=== PATIENT | female | born 1950 | race Caucasian/White ===

== ENCOUNTER → 2020-08-15 13:03 | Outpatient (CLI) | payer MEDICARE, SELFPAY ==
[2020-08-15] MEDS: COVID-19 VACC #1, MRNA(MOD) 100 MCG/0.5 ML VIAL IM (13:16)
== END ==
PROVIDERS: Visit Provider Internal Medicine
DX: Z23 Encounter for immunization (principal)
CPT/HCPCS: 0011A; 91301

== ENCOUNTER → 2020-09-10 09:58 | Outpatient (CLI) | payer OTHER, SELFPAY ==
--- NOTE | 2020-09-10 | DI.RAD.S_ITS ---
PROCEDURE: XR CERVICAL SPINE 4V OR 5V INDICATIONS: Cervical radiculopathy TECHNIQUE: 5 views of the cervical spine acquired. COMPARISON: None. FINDINGS: No fracture. Multilevel degenerative endplate sclerosis and spurring. Diffuse facet arthropathy. Severe narrowing of the C4-C7 disc spaces. Grade 1 anterolisthesis of C3 on C4. Mild bony foraminal narrowing at C5-C6 and C6-C7 on the right. Moderate to severe left bony foraminal stenosis at C5-C6 Partially visualized lateral curvature of the cervical spine Soft tissues: No prevertebral soft tissue swelling. IMPRESSION: Cervical spondylosis and facet arthropathy as above. Grade 1 anterolisthesis of C3 on C4 Dictated by: Blayne Mckeon M.D. on 09/10/2020 at 12:03 Approved by: Blayne Mckeon M.D. on 09/10/2020 at 12:07
[2020-09-10 10:50] LABS: Add Manual Diff / Slide Review NO; Basophils Absolute Auto 0 /uL (0-100); Basophils Percent Auto 0.5 % (0-2); Eosinophils Absolute Auto 200 /uL (0-450); Eosinophils Percent Auto 3.1 % (2-4); Hematocrit 37.8 % (36-46); Hemoglobin 13.3 g/dL (12.0-16.0); Lymphocytes Absolute Auto 2000 /uL (1100-4500); Lymphocytes Percent Auto 35.5 % (25-40); Mean Corpuscular HGB Conc 35.2 % (30-36); Mean Corpuscular Hemoglobin 33.7 PG (26-34); Mean Corpuscular Volume 95.8 fL (80-100); Monocytes Absolute Auto 400 /uL (0-900); Monocytes Percent Auto 6.9 % (3-14); Neutrophils Absolute Auto 3000 /uL (1500-7000); Platelet Count 353 X10^3/uL (150-400); Red Blood Cell Count 3.94 X10^6/uL (4.0-5.2); Red Cell Distribution Width 12.6 % (11.6-14.8); White Blood Cell Count 5.6 X10^3/uL (4.5-11.0)
[2020-09-10 11:04] LABS: Alanine Aminotransferase 34 IU/L (<35); Albumin 4.6 g/dL (3.5-5.0); Albumin Globulin Ratio 1.5 (1.0-2.8); Alkaline Phosphatase 77 U/L (38-126); Aspartate Aminotransferase 34 IU/L (14-36); Bilirubin Total 0.6 mg/dL (0.2-1.3); Blood Urea Nitrogen 15 mg/dL (7-17); Calcium 10.1 mg/dL (8.4-10.2); Carbon Dioxide 27 mmol/L (22-32); Chloride 97 mmol/L (98-107); Cholesterol 199 mg/dL (140-199); Estimated Glomerular Filt Rate > 60.0 mL/min (>60); Globulin 3.1 g/dL (1.7-4.1); Glucose 97 mg/dL (80-110); HDL Cholesterol 61 mg/dL (40-60); HEMOLYSIS < 15 (0-50); LDL Cholesterol Calculated 96 mg/dL (<100); Potassium 3.8 mmol/L (3.4-5.1); Sodium 132 mmol/L (137-145); Total Protein 7.7 g/dL (6.3-8.2); Triglycerides 208 mg/dL (35-150)
== END ==
PROVIDERS: Referring Provider Physician Assistant; Visit Provider Physician Assistant
DX: M54.12 Radiculopathy, cervical region (principal); I10 Essential (primary) hypertension; E78.2 Mixed hyperlipidemia
CPT/HCPCS: 36415; 72050; 80053; 80061; 85025

== ENCOUNTER → 2020-09-10 15:32 | Outpatient (CLI) | payer MEDICARE, SELFPAY ==
[2020-09-10] MEDS: COVID-19 VACC #2, MRNA(MOD) 100 MCG/0.5 ML VIAL IM (15:44)
== END ==
PROVIDERS: Visit Provider Internal Medicine
DX: Z23 Encounter for immunization (principal)
CPT/HCPCS: 0012A; 91301

== ENCOUNTER 2020-10-20 12:45 | Outpatient (RCR) | payer OTHER, SELFPAY ==
--- NOTE | 2020-09-29 15:00 | PT.OPPOC ---
Physical, Occupational & Speech Therapy At [facility] Current Diagnoses Radiculopathy, cervical region (09/29/20) Visit Care Team Role Provider Type Adelaide Corley PA-C Attending Provider Non-Staff Family Provider Primary Care Provider Referring Provider Specialty: Internal Medicine Address: [address] [place] [address], [employer] Email: [email or web address] Plan Of Care PT-OP-T Assessment and Plan Start: 09/29/20 07:26 Freq: Status: Active Protocol: Document 09/29/20 12:45 AMB (Rec: 09/30/20 08:02 AMB [email or web address]) Physical Therapy Assessment Rehab Potential Rehabilitation Potential Good Evaluation Complexity Number of Personal Factors/Comorbidities 1-2 Number of Body Systems Impaired 3 Clinical Presentation at Evaluation Evolving Impairments Impairments Pain,Posture,ROM Goals Two Impairment Pain Short Term Goal (STG) Simi will sit for an hour to read/watch TV with good posture and no tingling in her arm. STG Duration 4 weeks Advanced Manufacturing Engineer Goal (LTG) Simi will work at the computer for an hour without neck pain and with good ergonomic set up. LTG Duration 8 weeks One Impairment ROM Short Term Goal (STG) Simi will improve her cervical flexion to 55 degrees without pain. STG Duration 4 weeks Assessment Summary Assessment Simi attends physical therapy with right sided muscular pain on top of cervical stenosis, worst on the left. She is experiencing some tingling, but has maintained her strength well and denies numbness. She will benefit from physical therapy for manual therapy and modalities to decrease her muscle spasm and then improve her posture/ body mechanics to avoid increased tension on her right sided neck musculature. Physical Therapy Plan Frequency and Duration Frequency of Treatment 2x/Week Duration of Treatment 8 weeks Plan of Care Start Date 09/29/20 Plan of Care End Date 11/24/20 Therapeutic Interventions Therapeutic Interventions Home Exercise Program,Joint Mobilizations,Manual Therapy, Neuromuscular Re-education, Self-Care/Home Management,Soft Tissue Mobilization, Therapeutic Activities, Therapeutic Exercises Modalities Cold Pack/Ice Massage,Electric Stimulation,Hot Packs, Traction- Mechanical, Ultrasound Next Visit Focus/Plan Next Note Type Treatment Note Next Visit Plan Reassess HEP: upper trap stretch and pec stretch. Manual therapy, can try modalities as necessary, progress postural training Plan of Care Dates Plan of Care Start Date 09/29/20 Plan of Care End Date 11/24/20 Electronically Signed by: Teri Wilson, PT 09/30/20 0804 Please Sign and Return: I have reviewed this Plan of Care and certify that the skilled therapy services above are required to meet the patient?s needs. Physician Signature Date Printed Name and Credentials Clinical Instructor Signature Printed Name and Credentials
--- NOTE | 2020-09-29 15:00 | PT.OIE ---
Current Diagnoses Radiculopathy, cervical region (09/29/20) Visit Care Team Role Provider Type Adelaide Corley PA-C Attending Provider Non-Staff Family Provider Primary Care Provider Referring Provider Specialty: Internal Medicine Address: [address] [place] [address], [id number] Email: [email or web address] Initial Evaluation PT-OP-A Visit Information Start: 09/29/20 07:26 Freq: Status: Active Protocol: Document 09/29/20 12:45 AMB (Rec: 09/30/20 08:02 AMB [email or web address]) Out-Patient Physical Therapy Visit Information Visit Information Visit Type Initial Evaluation Visit Start Time 12:45 Visit Stop Time 13:30 Total Visit Minutes 45 Visit Number 1 PT-OP-B Current Condition Start: 09/29/20 07:26 Freq: Status: Active Protocol: Document 09/29/20 12:45 AMB (Rec: 09/29/20 12:55 AMB [id number]) Current Condition History of Current Condition Onset Date August 2019 Current Complaints R neck/scapular pain History of Current Condition Woke up one night with neck pain which has recently been improving. Tingling with sitting in chair to mid arm started 6 weeks ago, denies dropping things/numbness. Hasn't been moving around as much due to covid. Generally sitting and looking down at phone/ book, increases pain/ stiffness/tingling. Prior Treatments and Tests X-ray: stensosis worst at L C56. Treatment Goals Patient/Caregiver Goals reduce pain/tingling Prior Functional Status Baseline Function- ADL's Independent Baseline Function- Mobility Independent Personal Factors Other Personal Factors That May Effect Hx lumbar laminectomy Therapy/Recovery PT-OP-C Subjective Start: 09/29/20 07:26 Freq: Status: Active Protocol: Document 09/29/20 12:45 AMB (Rec: 09/30/20 08:02 AMB [email or web address]) Patient Questionnaires Neck Disability Index NDI Score 14 Neck Disability Index Impairment 20 to 39% Impaired (Score 10- 19) Quick Dash- Upper Extremity Quick Dash UE Score 27 Quick Dash UE Impairment 20 to 39% Impaired (Score 20- 39) OP-PT Pain Assessment Comments Pain Comments 3-6/10 R cervical scapular region most at upper trap/ levator scap PT-OP-F Manual Assessment Start: 09/29/20 07:26 Freq: Status: Active Protocol: Document 09/29/20 12:45 AMB (Rec: 09/30/20 08:02 AMB [email or web address]) Manual Assessments Soft Tissue Assessment Soft Tissue Mobility Assessment Tenderness and TrPs throughout upper trap/scapular stabilizers worse R>L Joint Mobility Assessment Joint Mobility Assessment Mid stiffness with UPAs throughout cervical spine worst at lower cervical levels PT-OP-J Posture/Palpation/Skin Start: 09/29/20 07:26 Freq: Status: Active Protocol: Document 09/29/20 12:45 AMB (Rec: 09/30/20 08:02 AMB [email or web address]) Posture Evaluation Comments Posture Comments Moderate forward head posture with mild scapular border winging bilaterally PT-OP-K Range of Motion Start: 09/29/20 07:26 Freq: Status: Active Protocol: Document 09/29/20 12:45 AMB (Rec: 09/30/20 08:02 AMB [email or web address]) Cervical Spine Range of Motion Cervical Spine Active Degrees Testing Position Sitting Flexion 40 Extension 37 Rotation Left 60 Rotation Right 60 Lateral Flexion Left 25 Lateral Flexion Right 20 Comments pain with flexion in neck, no radiating sx PT-OP-M Strength Start: 09/29/20 07:26 Freq: Status: Active Protocol: Document 09/29/20 12:45 AMB (Rec: 09/30/20 08:02 AMB [email or web address]) Hand Production Dispatcher/Pinch Strength Hand Dominance Hand Dominance Right Hand Strength Left Production Dispatcher (lbs) 60 Right Production Dispatcher (lbs) 60 PT-OP-Q Treatments Start: 09/29/20 07:26 Freq: Status: Active Protocol: Document 09/29/20 12:45 AMB (Rec: 09/30/20 08:03 AMB [email or web address]) Therapeutic Exercises Sitting Exercises 1 Sitting Exercise Name upper trap stretch Reps/Minutes 30x2 Standing Exercises 1 Standing Exercise Name pec stretch Reps/Minutes 30x2 Comments doorway PT-OP-T Assessment and Plan Start: 09/29/20 07:26 Freq: Status: Active Protocol: Document 09/29/20 12:45 AMB (Rec: 09/30/20 08:02 AMB [email or web address]) Physical Therapy Assessment Rehab Potential Rehabilitation Potential Good Evaluation Complexity Number of Personal Factors/Comorbidities 1-2 Number of Body Systems Impaired 3 Clinical Presentation at Evaluation Evolving Impairments Impairments Pain,Posture,ROM Goals Two Impairment Pain Short Term Goal (STG) Simi will sit for an hour to read/watch TV with good posture and no tingling in her arm. STG Duration 4 weeks Long-Term Goal (LTG) Simi will work at the computer for an hour without neck pain and with good ergonomic set up. LTG Duration 8 weeks One Impairment ROM Short Term Goal (STG) Simi will improve her cervical flexion to 55 degrees without pain. STG Duration 4 weeks Assessment Summary Assessment Simi attends physical therapy with right sided muscular pain on top of cervical stenosis, worst on the left. She is experiencing some tingling, but has maintained her strength well and denies numbness. She will benefit from physical therapy for manual therapy and modalities to decrease her muscle spasm and then improve her posture/ body mechanics to avoid increased tension on her right sided neck musculature. Physical Therapy Plan Frequency and Duration Frequency of Treatment 2x/Week Duration of Treatment 8 weeks Plan of Care Start Date 09/29/20 Plan of Care End Date 11/24/20 Therapeutic Interventions Therapeutic Interventions Home Exercise Program,Joint Mobilizations,Manual Therapy, Neuromuscular Re-education, Self-Care/Home Management,Soft Tissue Mobilization, Therapeutic Activities, Therapeutic Exercises Modalities Cold Pack/Ice Massage,Electric Stimulation,Hot Packs, Traction- Mechanical, Ultrasound Next Visit Focus/Plan Next Note Type Treatment Note Next Visit Plan Reassess HEP: upper trap stretch and pec stretch. Manual therapy, can try modalities as necessary, progress postural training
--- NOTE | 2020-10-01 15:29 | PT.OTN ---
Current Diagnoses Radiculopathy, cervical region (10/01/20) Physical Therapy Treatment Note PT-OP-A Visit Information Start: 09/29/20 07:26 Freq: Status: Active Protocol: Document 10/01/20 12:45 AMB (Rec: 10/01/20 13:31 AMB [id number]) Out-Patient Physical Therapy Visit Information Visit Information Visit Type Treatment Note Visit Start Time 12:45 Visit Stop Time 13:30 Total Visit Minutes 45 Visit Number 2 PT-OP-B Current Condition Start: 09/29/20 07:26 Freq: Status: Active Protocol: Document 09/29/20 12:45 AMB (Rec: 09/29/20 12:55 AMB [id number]) Current Condition History of Current Condition Onset Date August 2019 Current Complaints R neck/scapular pain History of Current Condition Woke up one night with neck pain which has recently been improving. Tingling with sitting in chair to mid arm started 6 weeks ago, denies dropping things/numbness. Hasn't been moving around as much due to covid. Generally sitting and looking down at phone/ book, increases pain/ stiffness/tingling. Prior Treatments and Tests X-ray: stensosis worst at L C56. Treatment Goals Patient/Caregiver Goals reduce pain/tingling Prior Functional Status Baseline Function- ADL's Independent Baseline Function- Mobility Independent Personal Factors Other Personal Factors That May Effect Hx lumbar laminectomy Therapy/Recovery PT-OP-C Subjective Start: 09/29/20 07:26 Freq: Status: Active Protocol: Document 10/01/20 12:45 AMB (Rec: 10/01/20 15:28 AMB [email or web address]) OP-PT Subjective Patient Comments Patient Comments Simi was able to do her stretches without incident. PT-OP-F Manual Assessment Start: 09/29/20 07:26 Freq: Status: Active Protocol: Document 09/29/20 12:45 AMB (Rec: 09/30/20 08:02 AMB [email or web address]) Manual Assessments Soft Tissue Assessment Soft Tissue Mobility Assessment Tenderness and TrPs throughout upper trap/scapular stabilizers worse R>L Joint Mobility Assessment Joint Mobility Assessment Mid stiffness with UPAs throughout cervical spine worst at lower cervical levels PT-OP-J Posture/Palpation/Skin Start: 09/29/20 07:26 Freq: Status: Active Protocol: Document 09/29/20 12:45 AMB (Rec: 09/30/20 08:02 AMB [email or web address]) Posture Evaluation Comments Posture Comments Moderate forward head posture with mild scapular border winging bilaterally PT-OP-K Range of Motion Start: 09/29/20 07:26 Freq: Status: Active Protocol: Document 09/29/20 12:45 AMB (Rec: 09/30/20 08:02 AMB [email or web address]) Cervical Spine Range of Motion Cervical Spine Active Degrees Testing Position Sitting Flexion 40 Extension 37 Rotation Left 60 Rotation Right 60 Lateral Flexion Left 25 Lateral Flexion Right 20 Comments pain with flexion in neck, no radiating sx PT-OP-M Strength Start: 09/29/20 07:26 Freq: Status: Active Protocol: Document 09/29/20 12:45 AMB (Rec: 09/30/20 08:02 AMB [email or web address]) Hand Dope Sprayer/Pinch Strength Hand Dominance Hand Dominance Right Hand Strength Left Dope Sprayer (lbs) 60 Right Dope Sprayer (lbs) 60 PT-OP-Q Treatments Start: 09/29/20 07:26 Freq: Status: Active Protocol: Document 10/01/20 12:45 AMB (Rec: 10/01/20 15:28 AMB [email or web address]) Therapeutic Exercises Sitting Exercises 1 Sitting Exercise Name upper trap stretch Reps/Minutes 30x2 Standing Exercises 2 Standing Exercise Name low row Resistance #3 t band Reps/Minutes 2x10 1 Standing Exercise Name pec stretch Reps/Minutes 30x2 Comments doorway Manual Therapy Treatment Soft Tissue Mobilization 1 Body Location Bilat upper trap Mobilization Type Myofascial Release Intensity/Depth Moderate Body Position Supine PT-OP-R Modalities Start: 09/29/20 07:26 Freq: Status: Active Protocol: Document 10/01/20 12:45 AMB (Rec: 10/01/20 15:28 AMB [email or web address]) Electric Stimulation Electric Stimulation Interferential Current (IFC) Body Location bilat upper traps Duration (Minutes) 15 Combined With Heat/Cold Hot Pack PT-OP-T Assessment and Plan Start: 09/29/20 07:26 Freq: Status: Active Protocol: Document 10/01/20 12:45 AMB (Rec: 10/01/20 15:28 AMB [email or web address]) Physical Therapy Assessment Assessment Summary Assessment Simi continues to have tension in bilateral upper traps, levator scap, encouraged in theracane, TENS, stretching, scapular strengthening. Physical Therapy Plan Next Visit Focus/Plan Next Note Type Treatment Note Next Visit Plan Assess how pt tolerated IFC/ heat, follow up on T band rows added to HEP
--- NOTE | 2020-10-06 13:49 | PT.OTN ---
Current Diagnoses Radiculopathy, cervical region (10/06/20) Physical Therapy Treatment Note PT-OP-A Visit Information Start: 09/29/20 07:26 Freq: Status: Active Protocol: Document 10/06/20 12:47 AMB (Rec: 10/06/20 13:38 AMB [id number]) Out-Patient Physical Therapy Visit Information Visit Information Visit Type Treatment Note Visit Start Time 12:45 Visit Stop Time 13:30 Total Visit Minutes 45 Visit Number 3 PT-OP-B Current Condition Start: 09/29/20 07:26 Freq: Status: Active Protocol: Document 09/29/20 12:45 AMB (Rec: 09/29/20 12:55 AMB [id number]) Current Condition History of Current Condition Onset Date August 2019 Current Complaints R neck/scapular pain History of Current Condition Woke up one night with neck pain which has recently been improving. Tingling with sitting in chair to mid arm started 6 weeks ago, denies dropping things/numbness. Hasn't been moving around as much due to covid. Generally sitting and looking down at phone/ book, increases pain/ stiffness/tingling. Prior Treatments and Tests X-ray: stensosis worst at L C56. Treatment Goals Patient/Caregiver Goals reduce pain/tingling Prior Functional Status Baseline Function- ADL's Independent Baseline Function- Mobility Independent Personal Factors Other Personal Factors That May Effect Hx lumbar laminectomy Therapy/Recovery PT-OP-C Subjective Start: 09/29/20 07:26 Freq: Status: Active Protocol: Document 10/06/20 12:47 AMB (Rec: 10/06/20 13:38 AMB [id number]) OP-PT Subjective Patient Comments Patient Comments Pt felt really good after last treatment, lasted the rest of the day, overall feeling better with stretches. PT-OP-F Manual Assessment Start: 09/29/20 07:26 Freq: Status: Active Protocol: Document 09/29/20 12:45 AMB (Rec: 09/30/20 08:02 AMB [email or web address]) Manual Assessments Soft Tissue Assessment Soft Tissue Mobility Assessment Tenderness and TrPs throughout upper trap/scapular stabilizers worse R>L Joint Mobility Assessment Joint Mobility Assessment Mid stiffness with UPAs throughout cervical spine worst at lower cervical levels PT-OP-J Posture/Palpation/Skin Start: 09/29/20 07:26 Freq: Status: Active Protocol: Document 09/29/20 12:45 AMB (Rec: 09/30/20 08:02 AMB [email or web address]) Posture Evaluation Comments Posture Comments Moderate forward head posture with mild scapular border winging bilaterally PT-OP-K Range of Motion Start: 09/29/20 07:26 Freq: Status: Active Protocol: Document 09/29/20 12:45 AMB (Rec: 09/30/20 08:02 AMB [email or web address]) Cervical Spine Range of Motion Cervical Spine Active Degrees Testing Position Sitting Flexion 40 Extension 37 Rotation Left 60 Rotation Right 60 Lateral Flexion Left 25 Lateral Flexion Right 20 Comments pain with flexion in neck, no radiating sx PT-OP-M Strength Start: 09/29/20 07:26 Freq: Status: Active Protocol: Document 09/29/20 12:45 AMB (Rec: 09/30/20 08:02 AMB [email or web address]) Hand Reconcilement Clerk/Pinch Strength Hand Dominance Hand Dominance Right Hand Strength Left Reconcilement Clerk (lbs) 60 Right Reconcilement Clerk (lbs) 60 PT-OP-Q Treatments Start: 09/29/20 07:26 Freq: Status: Active Protocol: Document 10/06/20 13:43 AMB (Rec: 10/06/20 13:49 AMB [email or web address]) Therapeutic Exercises Sitting Exercises 1 Sitting Exercise Name upper trap stretch Reps/Minutes 30x2 Standing Exercises 4 Standing Exercise Name t band shoulder extension Reps/Minutes 2x10 3 Standing Exercise Name shoulder ER Resistance #3 t band Reps/Minutes 2x10 2 Standing Exercise Name low row Resistance #3 t band Reps/Minutes 2x10 Manual Therapy Treatment Soft Tissue Mobilization 1 Body Location Bilat upper trap Mobilization Type Myofascial Release Intensity/Depth Moderate Body Position Supine PT-OP-R Modalities Start: 09/29/20 07:26 Freq: Status: Active Protocol: Document 10/06/20 13:43 AMB (Rec: 10/06/20 13:49 AMB [email or web address]) Electric Stimulation Electric Stimulation Interferential Current (IFC) Body Location bilat upper traps Duration (Minutes) 15 Combined With Heat/Cold Hot Pack PT-OP-T Assessment and Plan Start: 09/29/20 07:26 Freq: Status: Active Protocol: Document 10/06/20 13:43 AMB (Rec: 10/06/20 13:49 AMB [email or web address]) Physical Therapy Assessment Assessment Summary Assessment Simi has followed through on stretching, theracane usage well, overall she continues to feel a bit stiff but is improving, encouraged to consider rearranging furniture so that she doesn't have to watch TV with kinked neck. Physical Therapy Plan Next Visit Focus/Plan Next Note Type Treatment Note Next Visit Plan Assess how pt tolerated IFC/ heat, follow up on T band rows added to HEP
--- NOTE | 2020-10-13 14:08 | PT.OTN ---
Current Diagnoses Radiculopathy, cervical region (10/13/20) Physical Therapy Treatment Note PT-OP-A Visit Information Start: 09/29/20 07:26 Freq: Status: Active Protocol: Document 10/13/20 12:45 AMB (Rec: 10/13/20 13:07 AMB [id number]) Out-Patient Physical Therapy Visit Information Visit Information Visit Type Treatment Note Visit Start Time 12:45 Visit Stop Time 13:30 Total Visit Minutes 55 Visit Number 4 PT-OP-B Current Condition Start: 09/29/20 07:26 Freq: Status: Active Protocol: Document 09/29/20 12:45 AMB (Rec: 09/29/20 12:55 AMB [id number]) Current Condition History of Current Condition Onset Date August 2019 Current Complaints R neck/scapular pain History of Current Condition Woke up one night with neck pain which has recently been improving. Tingling with sitting in chair to mid arm started 6 weeks ago, denies dropping things/numbness. Hasn't been moving around as much due to covid. Generally sitting and looking down at phone/ book, increases pain/ stiffness/tingling. Prior Treatments and Tests X-ray: stensosis worst at L C56. Treatment Goals Patient/Caregiver Goals reduce pain/tingling Prior Functional Status Baseline Function- ADL's Independent Baseline Function- Mobility Independent Personal Factors Other Personal Factors That May Effect Hx lumbar laminectomy Therapy/Recovery PT-OP-C Subjective Start: 09/29/20 07:26 Freq: Status: Active Protocol: Document 10/13/20 12:45 AMB (Rec: 10/13/20 13:57 AMB [email or web address]) OP-PT Subjective Patient Comments Patient Comments Pt is wondering if she is ready to d/c. PT-OP-F Manual Assessment Start: 09/29/20 07:26 Freq: Status: Active Protocol: Document 09/29/20 12:45 AMB (Rec: 09/30/20 08:02 AMB [email or web address]) Manual Assessments Soft Tissue Assessment Soft Tissue Mobility Assessment Tenderness and TrPs throughout upper trap/scapular stabilizers worse R>L Joint Mobility Assessment Joint Mobility Assessment Mid stiffness with UPAs throughout cervical spine worst at lower cervical levels PT-OP-J Posture/Palpation/Skin Start: 09/29/20 07:26 Freq: Status: Active Protocol: Document 09/29/20 12:45 AMB (Rec: 09/30/20 08:02 AMB [email or web address]) Posture Evaluation Comments Posture Comments Moderate forward head posture with mild scapular border winging bilaterally PT-OP-K Range of Motion Start: 09/29/20 07:26 Freq: Status: Active Protocol: Document 09/29/20 12:45 AMB (Rec: 09/30/20 08:02 AMB [email or web address]) Cervical Spine Range of Motion Cervical Spine Active Degrees Testing Position Sitting Flexion 40 Extension 37 Rotation Left 60 Rotation Right 60 Lateral Flexion Left 25 Lateral Flexion Right 20 Comments pain with flexion in neck, no radiating sx PT-OP-M Strength Start: 09/29/20 07:26 Freq: Status: Active Protocol: Document 09/29/20 12:45 AMB (Rec: 09/30/20 08:02 AMB [email or web address]) Hand Sales Operations Director/Pinch Strength Hand Dominance Hand Dominance Right Hand Strength Left Sales Operations Director (lbs) 60 Right Sales Operations Director (lbs) 60 PT-OP-Q Treatments Start: 09/29/20 07:26 Freq: Status: Active Protocol: Document 10/13/20 12:45 AMB (Rec: 10/13/20 13:57 AMB [email or web address]) Cardio Equipment Upper Body Ergometer (UBE) Duration (Minutes) 4 RPM 60 Other fwdbackward Therapeutic Exercises Standing Exercises 5 Standing Exercise Name chin tuck Reps/Minutes 5x10 4 Standing Exercise Name t band shoulder extension Reps/Minutes 2x10 1 Standing Exercise Name pec stretch Reps/Minutes 30x2 Comments doorway Manual Therapy Treatment Soft Tissue Mobilization 1 Body Location Bilat upper trap Mobilization Type Myofascial Release Intensity/Depth Moderate Body Position Supine PT-OP-R Modalities Start: 09/29/20 07:26 Freq: Status: Active Protocol: Document 10/13/20 13:58 AMB (Rec: 10/13/20 14:00 AMB [email or web address]) Electric Stimulation Electric Stimulation Interferential Current (IFC) Body Location bilat upper traps Duration (Minutes) 15 Combined With Heat/Cold Hot Pack PT-OP-T Assessment and Plan Start: 09/29/20 07:26 Freq: Status: Active Protocol: Document 10/13/20 12:45 AMB (Rec: 10/13/20 13:07 AMB [id number]) Physical Therapy Assessment Goals Two Impairment Pain Short Term Goal (STG) Sahara will sit for an hour to read/watch TV with good posture and no tingling in her arm. STG Duration MET Prison Goal (LTG) Sahara will work at the computer for an hour without neck pain and with good ergonomic set up. LTG Duration MET One Impairment ROM Short Term Goal (STG) Sahara will improve her cervical flexion to 55 degrees without pain. STG Duration 4 weeks Assessment Summary Assessment sahara has improved her cervical flexion and is independent with her exercise, she has moved her TV so that it is straight in front of her chair, which has also helped. She is still having stiffness so she can have more PT to work on that, it is up to her. Physical Therapy Plan Next Visit Focus/Plan Next Note Type Discharge Summary Next Visit Plan plan on d/c due to pt traveling out of state.
--- NOTE | 2020-10-20 15:00 | PT.OTN ---
Current Diagnoses Radiculopathy, cervical region (10/20/20) Physical Therapy Treatment Note PT-OP-A Visit Information Start: 09/29/20 07:26 Freq: Status: Active Protocol: Document 10/20/20 12:45 AMB (Rec: 10/20/20 13:30 AMB [id number]) Out-Patient Physical Therapy Visit Information Visit Information Visit Type Discharge Summary Visit Start Time 12:45 Visit Stop Time 13:30 Total Visit Minutes 45 Visit Number 5 PT-OP-B Current Condition Start: 09/29/20 07:26 Freq: Status: Active Protocol: Document 09/29/20 12:45 AMB (Rec: 09/29/20 12:55 AMB [id number]) Current Condition History of Current Condition Onset Date August 2019 Current Complaints R neck/scapular pain History of Current Condition Woke up one night with neck pain which has recently been improving. Tingling with sitting in chair to mid arm started 6 weeks ago, denies dropping things/numbness. Hasn't been moving around as much due to covid. Generally sitting and looking down at phone/ book, increases pain/ stiffness/tingling. Prior Treatments and Tests X-ray: stensosis worst at L C56. Treatment Goals Patient/Caregiver Goals reduce pain/tingling Prior Functional Status Baseline Function- ADL's Independent Baseline Function- Mobility Independent Personal Factors Other Personal Factors That May Effect Hx lumbar laminectomy Therapy/Recovery PT-OP-C Subjective Start: 09/29/20 07:26 Freq: Status: Active Protocol: Document 10/20/20 12:45 AMB (Rec: 10/20/20 13:30 AMB [id number]) OP-PT Subjective Patient Comments Patient Comments Pt reports one day in the last week with pain of 6-7/10. PT-OP-F Manual Assessment Start: 09/29/20 07:26 Freq: Status: Active Protocol: Document 09/29/20 12:45 AMB (Rec: 09/30/20 08:02 AMB [email or web address]) Manual Assessments Soft Tissue Assessment Soft Tissue Mobility Assessment Tenderness and TrPs throughout upper trap/scapular stabilizers worse R>L Joint Mobility Assessment Joint Mobility Assessment Mid stiffness with UPAs throughout cervical spine worst at lower cervical levels PT-OP-J Posture/Palpation/Skin Start: 09/29/20 07:26 Freq: Status: Active Protocol: Document 09/29/20 12:45 AMB (Rec: 09/30/20 08:02 AMB [email or web address]) Posture Evaluation Comments Posture Comments Moderate forward head posture with mild scapular border winging bilaterally PT-OP-K Range of Motion Start: 09/29/20 07:26 Freq: Status: Active Protocol: Document 09/29/20 12:45 AMB (Rec: 09/30/20 08:02 AMB [email or web address]) Cervical Spine Range of Motion Cervical Spine Active Degrees Testing Position Sitting Flexion 40 Extension 37 Rotation Left 60 Rotation Right 60 Lateral Flexion Left 25 Lateral Flexion Right 20 Comments pain with flexion in neck, no radiating sx PT-OP-M Strength Start: 09/29/20 07:26 Freq: Status: Active Protocol: Document 09/29/20 12:45 AMB (Rec: 09/30/20 08:02 AMB [email or web address]) Hand Teacher Home Therapy/Pinch Strength Hand Dominance Hand Dominance Right Hand Strength Left Teacher Home Therapy (lbs) 60 Right Teacher Home Therapy (lbs) 60 PT-OP-Q Treatments Start: 09/29/20 07:26 Freq: Status: Active Protocol: Document 10/20/20 12:45 AMB (Rec: 10/20/20 13:30 AMB [id number]) Cardio Equipment Upper Body Ergometer (UBE) Duration (Minutes) 4 RPM 60 Other fwdbackward Therapeutic Exercises Sitting Exercises 1 Sitting Exercise Name upper trap stretch Reps/Minutes 30x2 Standing Exercises 5 Standing Exercise Name chin tuck Reps/Minutes 5x10 4 Standing Exercise Name t band shoulder extension Reps/Minutes 2x10 1 Standing Exercise Name pec stretch Reps/Minutes 30x2 Comments doorway Manual Therapy Treatment Soft Tissue Mobilization 1 Body Location Bilat upper trap Mobilization Type Myofascial Release Intensity/Depth Moderate Body Position Supine PT-OP-R Modalities Start: 09/29/20 07:26 Freq: Status: Active Protocol: Document 10/13/20 13:58 AMB (Rec: 10/13/20 14:00 AMB [email or web address]) Electric Stimulation Electric Stimulation Interferential Current (IFC) Body Location bilat upper traps Duration (Minutes) 15 Combined With Heat/Cold Hot Pack PT-OP-T Assessment and Plan Start: 09/29/20 07:26 Freq: Status: Active Protocol: Document 10/20/20 12:45 AMB (Rec: 10/20/20 13:30 AMB [id number]) Physical Therapy Assessment Goals Two Impairment Pain Short Term Goal (STG) Simi will sit for an hour to read/watch TV with good posture and no tingling in her arm. STG Duration MET Outside Laborer Goal (LTG) Simi will work at the computer for an hour without neck pain and with good ergonomic set up. LTG Duration MET One Impairment ROM Short Term Goal (STG) Simi will improve her cervical flexion to 55 degrees without pain. STG Duration NOT MET Assessment Summary Assessment Simi has the tools to progress her neck rehab independently at this time. She is going to be traveling out of the state, and feels she is ready to discharge. She has improved her pain levels, and while she does have pain from time to time, she feels like she will be better able to manage it in the future, and the pain is not as constant as it was. Physical Therapy Plan Discharge Physical Therapy Discharge Reasons Goals Met
== END 2020-11-11 14:34 | disposition home or self-care (01) ==
LOC: PHYS 12:45
PROVIDERS: Family Provider Physician Assistant; PCP Physician Assistant; Referring Provider Physician Assistant; Visit Provider Physician Assistant
DX: M54.12 Radiculopathy, cervical region (principal)
CPT/HCPCS: 97014; 97110; 97140; 97162; G0283

== ENCOUNTER → 2020-12-04 10:45 | Outpatient (CLI) | payer OTHER, SELFPAY ==
--- NOTE | 2020-12-04 10:45 | DI.MG.S_ITS ---
BILATERAL DIGITAL SCREENING MAMMOGRAM 3D/2D WITH CAD: 12/04/2020 CLINICAL: Routine screening. Family history of breast cancer. Comparison is made to exams dated: 06/05/2018 mammogram, 05/24/2017 mammogram, and 05/03/2016 mammogram - [facility]. The tissue of both breasts is heterogeneously dense. This may lower the sensitivity of mammography. Current study was also evaluated with a Computer Aided Detection (CAD) system. No significant masses, calcifications, or other findings are seen in either breast. There has been no significant interval change. IMPRESSION: NEGATIVE There is no mammographic evidence of malignancy. A 1 year screening mammogram is recommended. This exam was interpreted at Station ID: [id number]. NOTE: For mammograms, a report in lay terms will be sent to the patient. Approximately 15% of breast malignancies will not be visualized mammographically. In the management of a palpable breast mass, a negative mammogram must not discourage biopsy of a clinically suspicious lesion. Electronically Signed By: Milo miranda/janki:12/04/2020 17:48:53 letter sent: Normal Exam ACR BI-RADS Category 1: Negative [id number]
== END ==
PROVIDERS: Family Provider Physician Assistant; PCP Physician Assistant; Referring Provider Physician Assistant; Visit Provider Physician Assistant
DX: Z12.31 Encounter for screening mammogram for malignant neoplasm of breast (principal); Z80.3 Family history of malignant neoplasm of breast
CPT/HCPCS: 77063; 77067

== ENCOUNTER → 2021-03-19 10:35 | Outpatient (CLI) | payer OTHER, SELFPAY ==
--- NOTE | 2021-03-19 | DI.RAD.S_ITS ---
PROCEDURE: XR HIP W PEL IF DONE KAHLIL MIN 4V INDICATIONS: PAIN IN BOTH HIPS TECHNIQUE: AP pelvis with lateral view(s) of the bilateral hip(s), three views total. COMPARISON: None. FINDINGS: Bones: No fractures or dislocations. Pelvic ring appears intact. No suspicious bony lesions. There is mild symmetric hip joint space narrowing consistent with mild degenerative osteoarthritis. No prior trauma. Soft tissues: The visualized bowel gas pattern is normal. No suspicious soft tissue calcifications. IMPRESSION: Mild symmetric hip joint osteoarthritis, no prior trauma. Dictated by: Deven Villalta M.D. on 03/19/2021 at 12:02 Approved by: Deven Villalta M.D. on 03/19/2021 at 12:03
== END ==
PROVIDERS: Family Provider Physician Assistant; PCP Physician Assistant; Referring Provider Physician Assistant; Visit Provider Physician Assistant
DX: M81.0 Age-related osteoporosis without current pathological fracture (principal); Z78.0 Asymptomatic menopausal state; M16.0 Bilateral primary osteoarthritis of hip
CPT/HCPCS: 73522; 77080

== ENCOUNTER 2021-04-29 09:45 | Outpatient (RCR) | payer OTHER, SELFPAY ==
--- NOTE | 2021-04-02 16:00 | PT.OIE ---
Current Diagnoses Pain in right hip (04/02/21) Visit Care Team Role Provider Type Adelaide Corley PA-C Attending Provider Non-Staff Primary Care Provider Referring Provider Specialty: Internal Medicine Address: [address] [place] [address], [facility] Email: [email or web address] Initial Evaluation PT-OP-A Visit Information Start: 04/02/21 13:36 Freq: Status: Active Protocol: Document 04/02/21 13:45 HH (Rec: 04/03/21 10:28 [email or web address]) Out-Patient Physical Therapy Visit Information Visit Information Visit Type Initial Evaluation Visit Start Time 13:45 Visit Stop Time 14:30 Total Visit Minutes 45 Visit Number 1/6 Number of TITLE VEHICLE SERVICE ATTENDANT Visits 0 Evaluation Information Evaluation Date 04/02/21 Precautions Precautions HTN PT-OP-B Current Condition Start: 04/02/21 13:36 Freq: Status: Active Protocol: Document 04/02/21 13:45 HH (Rec: 04/03/21 10:28 [email or web address]) Current Condition History of Current Condition Onset Date couple months ago Current Complaints R hip pain ,difficulty with WB activities History of Current Condition Simi is a 70 yo female here for her R hip pain since early this years. Pain is dull and achy at the posterior lateral side of the R hip. It is limiting her for walking, stair climbing, walking uphill and sleeping. Her pain gets worse with all WB activities. She recently had hip x-ray with Mild symmetric hip joint osteoarthritis but no concerns as her PA stated. Prior Treatments and Tests pt had back surgery L4-L5 few years ago. Personal Factors Other Personal Factors That May Effect HTN Therapy/Recovery PT-OP-C Subjective Start: 04/02/21 13:36 Freq: Status: Active Protocol: Document 04/02/21 13:45 HH (Rec: 04/03/21 10:28 [email or web address]) Patient Questionnaires Lower Extremity Functional Scale LEFS Score 46 LEFS Impairment 40 to 59% Impaired (Score 32- 47) OP-PT Pain Assessment Location R hip Pain Location Details posterior lateral of R hip joint Intensity 6 Scale Used Numeric (0 - 10) Description Aching,Dull Frequency Frequent Pain Aggravating Factors ADL's,Activity,Exercise, Standing,Walking,Stair Climbing,Lifting Pain Alleviating Factors Inactivity PT-OP-D Balance Start: 04/02/21 13:36 Freq: Status: Active Protocol: Document 04/02/21 13:45 HH (Rec: 04/03/21 10:28 [email or web address]) Balance Tests Single Limb Standing Single Limb- Right >20, noticeable lateral trunk to R Single Limb- Left >20 PT-OP-F Manual Assessment Start: 04/02/21 13:36 Freq: Status: Active Protocol: Document 04/02/21 13:45 HH (Rec: 04/03/21 10:28 [email or web address]) Manual Assessments Soft Tissue Assessment Soft Tissue Mobility Assessment significant toncity at R TFL, SIJ, proximal glute max tendon and IT band PT-OP-G Mobility & Gait Start: 04/02/21 13:36 Freq: Status: Active Protocol: Document 04/02/21 13:45 HH (Rec: 04/03/21 10:28 [email or web address]) OP Gait Assessment Comments Gait Comments noticeable trendelenburg sign. L hip drop during stance phase of RLE with lateral trunk lean to R. PT-OP-H Neuro Start: 04/02/21 13:36 Freq: Status: Active Protocol: Document 04/02/21 13:45 HH (Rec: 04/03/21 10:28 [email or web address]) Deep Tendon Reflex & Clonus Assessment Deep Tendon Reflex Bilateral Achilles Deep Tendon Reflex 2+ Normal Bilateral Patellar Deep Tendon Reflex 2+ Normal PT-OP-L Special Tests Start: 04/02/21 13:36 Freq: Status: Active Protocol: Document 04/02/21 13:45 HH (Rec: 04/03/21 10:28 [email or web address]) Special Tests Hip Special Tests Straight Leg Raise Test Results -ve Piriformis Test Results -ve FADDIR Test Results +VE R Comments pulling pain at hip KEYANA Test Results -ve Scour Test Test Results +VE R Comments posterioer lateral hip pain Trendelenberg Test Results +VE R PT-OP-M Strength Start: 04/02/21 13:36 Freq: Status: Active Protocol: Document 04/02/21 13:45 HH (Rec: 04/03/21 10:28 [email or web address]) Hip Strength Hip Manual Muscle Testing Right Flexion (L2) 4 Good Extension (S1) 4- Good- Abduction 3 Fair Adduction 4- Good- Left Flexion (L2) 4+ Good+ Extension (S1) 4+ Good+ Abduction 4+ Good+ Adduction 4+ Good+ Knee Strength Knee Manual Muscle Testing Right Flexion (S2) 4+ Good+ Extension (L3) 4+ Good+ Left Flexion (S2) 4+ Good+ Extension (L3) 4+ Good+ Ankle/Foot Strength Ankle and Foot Manual Muscle Testing Right Dorsiflexion (L4) 5 Normal Plantarflexion (S1) 5 Normal Left Dorsiflexion (L4) 5 Normal Plantarflexion (S1) 5 Normal PT-OP-Q Treatments Start: 04/02/21 13:36 Freq: Status: Active Protocol: Document 04/02/21 13:45 HH (Rec: 04/03/21 10:28 [email or web address]) Therapeutic Exercises Supine Exercises supine clamshell hold Side bilateral Reps/Minutes 10s hold x 5 Comments for HEP piriformis stretch Side right Reps/Minutes 15s holdx 5 Comments for HEP PT-OP-T Assessment and Plan Start: 04/02/21 13:36 Freq: Status: Active Protocol: Document 04/02/21 13:45 HH (Rec: 04/03/21 10:28 [email or web address]) Physical Therapy Assessment Rehab Potential Rehabilitation Potential Good Evaluation Complexity Number of Personal Factors/Comorbidities 1-2 Number of Body Systems Impaired 1-2 Clinical Presentation at Evaluation Stable Impairments Impairments Activity Tolerance,Balance, Functional Activities, Functional Mobility,Gait,Pain, Posture,ROM,Soft Tissue Mobility,Strength,Transfers Goals pain Impairment pt has 6/10 pain at r hip Short Term Goal (STG) pt will be able to tolerate walking, stair climbing and walking uphill without pain > 4/10 STG Duration 4 weeks Front Clerk Goal (LTG) pt will be able to tolerate walking, stair climbing and walking uphill without pain > 2/10 LTG Duration 8 weeks gait Impairment pt shows trendelenburg sign on RLe Short Term Goal (STG) pt will shows improved R hip abduction strength by 1/2 MMT STG Duration 4 weeks Front Clerk Goal (LTG) pt will shows improved R hip abduction strength by 1 MMT to normalize her gait without trendelenburg sign. LTG Duration 8 weeks LEFS Impairment pt scores 46 on LEFS Short Term Goal (STG) Pt will show improved mobility and strength to score> 55 on LEFS STG Duration 4 weeks Front Clerk Goal (LTG) Pt will show improved mobility and strength to score> 60 on LEFS LTG Duration 8 weeks Assessment Summary Assessment Smii is 70 yo female here for her R hip pain started couple months ago. Upon assessment, pt presents gluteal tendonopathy who shows significant trendelenburg sign on RLE during stance phase. Weakness noted for hip stabilizers which is possibly related to her previous back surgery. Further assessment might be needed. Pt will benefit from skilled therapy to strength her hip stabilizers and normalize her gait. Physical Therapy Plan Frequency and Duration Frequency of Treatment 1-2x/wk Duration of Treatment 8 weeks Plan of Care Start Date 04/03/21 Plan of Care End Date 06/02/21 Therapeutic Interventions Therapeutic Interventions Aquatic Therapy,Balance Training,Gait Training,Home Exercise Program,Joint Mobilizations,Manual Therapy, Neuromuscular Re-education, Patient/Caregiver Education, Self-Care/Home Management,Soft Tissue Mobilization,Taping, Therapeutic Activities, Therapeutic Exercises Modalities Cold Pack/Ice Massage,Electric Stimulation,Hot Packs, Infrared Therapy,Traction- Mechanical,Ultrasound Next Visit Focus/Plan Next Note Type Treatment Note Next Visit Plan hip stretches hip stabilization bridging clamshell
--- NOTE | 2021-04-03 10:29 | PT.OPPOC ---
Physical, Occupational & Speech Therapy At [facility] Current Diagnoses Pain in right hip (04/02/21) Visit Care Team Role Provider Type Adelaide Corley PA-C Attending Provider Non-Staff Primary Care Provider Referring Provider Specialty: Internal Medicine Address: [address] [place] [address], [id number] Email: [email or web address] Of Care PT-OP-T Assessment and Plan Start: 04/02/21 13:36 Freq: Status: Active Protocol: Document 04/02/21 13:45 HH (Rec: 04/03/21 10:28 HH [email or web address]) Physical Therapy Assessment Rehab Potential Rehabilitation Potential Good Evaluation Complexity Number of Personal Factors/Comorbidities 1-2 Number of Body Systems Impaired 1-2 Clinical Presentation at Evaluation Stable Impairments Impairments Activity Tolerance,Balance, Functional Activities, Functional Mobility,Gait,Pain, Posture,ROM,Soft Tissue Mobility,Strength,Transfers Goals pain Impairment pt has 6/10 pain at r hip Short Term Goal (STG) pt will be able to tolerate walking, stair climbing and walking uphill without pain > 4/10 STG Duration 4 weeks Shovel Mechanic Goal (LTG) pt will be able to tolerate walking, stair climbing and walking uphill without pain > 2/10 LTG Duration 8 weeks gait Impairment pt shows trendelenburg sign on RLe Short Term Goal (STG) pt will shows improved R hip abduction strength by 1/2 MMT STG Duration 4 weeks Shovel Mechanic Goal (LTG) pt will shows improved R hip abduction strength by 1 MMT to normalize her gait without trendelenburg sign. LTG Duration 8 weeks LEFS Impairment pt scores 46 on LEFS Short Term Goal (STG) Pt will show improved mobility and strength to score> 55 on LEFS STG Duration 4 weeks [facility] Goal (LTG) Pt will show improved mobility and strength to score> 60 on LEFS LTG Duration 8 weeks Assessment Summary Assessment Simi is 70 yo female here for her R hip pain started couple months ago. Upon assessment, pt presents gluteal tendonopathy who shows significant trendelenburg sign on RLE during stance phase. Weakness noted for hip stabilizers which is possibly related to her previous back surgery. Further assessment might be needed. Pt will benefit from skilled therapy to strength her hip stabilizers and normalize her gait. Physical Therapy Plan Frequency and Duration Frequency of Treatment 1-2x/wk Duration of Treatment 8 weeks Plan of Care Start Date 04/03/21 Plan of Care End Date 06/02/21 Therapeutic Interventions Therapeutic Interventions Aquatic Therapy,Balance Training,Gait Training,Home Exercise Program,Joint Mobilizations,Manual Therapy, Neuromuscular Re-education, Patient/Caregiver Education, Self-Care/Home Management,Soft Tissue Mobilization,Taping, Therapeutic Activities, Therapeutic Exercises Modalities Cold Pack/Ice Massage,Electric Stimulation,Hot Packs, Infrared Therapy,Traction- Mechanical,Ultrasound Next Visit Focus/Plan Next Note Type Treatment Note Next Visit Plan hip stretches hip stabilization bridging clamshell Plan of Care Dates Plan of Care Start Date 04/03/21 Plan of Care End Date 06/02/21 Electronically Signed by: Bobbi Camacho PT 04/03/21 [id number] Please Sign and Return: I have reviewed this Plan of Care and certify that the skilled therapy services above are required to meet the patient?s needs. Physician Signature Date Printed Name and Credentials Clinical Instructor Signature Printed Name and Credentials
--- NOTE | 2021-04-07 10:32 | PT.OTN ---
Current Diagnoses Pain in right hip (04/07/21) Physical Therapy Treatment Note PT-OP-A Visit Information Start: 04/02/21 13:36 Freq: Status: Active Protocol: Document 04/07/21 09:40 HH (Rec: 04/07/21 10:31 [id number]) Out-Patient Physical Therapy Visit Information Visit Information Visit Type Treatment Note Visit Start Time 09:45 Visit Stop Time 10:30 Total Visit Minutes 45 Visit Number 2/6 Number of CARDIOVASCULAR RADIOLOGIC TECHNOLOGIST Visits 0 PT-OP-B Current Condition Start: 04/02/21 13:36 Freq: Status: Active Protocol: Document 04/02/21 13:45 HH (Rec: 04/03/21 10:28 [email or web address]) Current Condition History of Current Condition Onset Date couple months ago Current Complaints R hip pain ,difficulty with WB activities History of Current Condition Simi is a 70 yo female here for her R hip pain since early this years. Pain is dull and achy at the posterior lateral side of the R hip. It is limiting her for walking, stair climbing, walking uphill and sleeping. Her pain gets worse with all WB activities. She recently had hip x-ray with Mild symmetric hip joint osteoarthritis but no concerns as her PA stated. Prior Treatments and Tests pt had back surgery L4-L5 few years ago. Personal Factors Other Personal Factors That May Effect HTN Therapy/Recovery PT-OP-C Subjective Start: 04/02/21 13:36 Freq: Status: Active Protocol: Document 04/07/21 09:40 HH (Rec: 04/07/21 10:31 [id number]) OP-PT Subjective Patient Comments Patient Comments I feel a little better. I can feel my hip is working a little bit more. Patient Reported Progress Improving PT-OP-D Balance Start: 04/02/21 13:36 Freq: Status: Active Protocol: Document 04/02/21 13:45 HH (Rec: 04/03/21 10:28 [email or web address]) Balance Tests Single Limb Standing Single Limb- Right >20, noticeable lateral trunk to R Single Limb- Left >20 PT-OP-F Manual Assessment Start: 04/02/21 13:36 Freq: Status: Active Protocol: Document 04/02/21 13:45 HH (Rec: 04/03/21 10:28 [email or web address]) Manual Assessments Soft Tissue Assessment Soft Tissue Mobility Assessment significant toncity at R TFL, SIJ, proximal glute max tendon and IT band PT-OP-G Mobility & Gait Start: 04/02/21 13:36 Freq: Status: Active Protocol: Document 04/02/21 13:45 HH (Rec: 04/03/21 10:28 HH [email or web address]) OP Gait Assessment Comments Gait Comments noticeable trendelenburg sign. L hip drop during stance phase of RLE with lateral trunk lean to R. PT-OP-H Neuro Start: 04/02/21 13:36 Freq: Status: Active Protocol: Document 04/02/21 13:45 HH (Rec: 04/03/21 10:28 HH [email or web address]) Deep Tendon Reflex & Clonus Assessment Deep Tendon Reflex Bilateral Achilles Deep Tendon Reflex 2+ Normal Bilateral Patellar Deep Tendon Reflex 2+ Normal PT-OP-L Special Tests Start: 04/02/21 13:36 Freq: Status: Active Protocol: Document 04/02/21 13:45 HH (Rec: 04/03/21 10:28 [email or web address]) Special Tests Hip Special Tests Straight Leg Raise Test Results -ve Piriformis Test Results -ve FADDIR Test Results +VE R Comments pulling pain at hip KEYANA Test Results -ve Scour Test Test Results +VE R Comments posterioer lateral hip pain Trendelenberg Test Results +VE R PT-OP-M Strength Start: 04/02/21 13:36 Freq: Status: Active Protocol: Document 04/02/21 13:45 HH (Rec: 04/03/21 10:28 [email or web address]) Hip Strength Hip Manual Muscle Testing Right Flexion (L2) 4 Good Extension (S1) 4- Good- Abduction 3 Fair Adduction 4- Good- Left Flexion (L2) 4+ Good+ Extension (S1) 4+ Good+ Abduction 4+ Good+ Adduction 4+ Good+ Knee Strength Knee Manual Muscle Testing Right Flexion (S2) 4+ Good+ Extension (L3) 4+ Good+ Left Flexion (S2) 4+ Good+ Extension (L3) 4+ Good+ Ankle/Foot Strength Ankle and Foot Manual Muscle Testing Right Dorsiflexion (L4) 5 Normal Plantarflexion (S1) 5 Normal Left Dorsiflexion (L4) 5 Normal Plantarflexion (S1) 5 Normal PT-OP-Q Treatments Start: 04/02/21 13:36 Freq: Status: Active Protocol: Document 04/07/21 09:40 (Rec: 04/07/21 10:31 [id number]) Therapeutic Exercises Supine Exercises sciatic nerve glide Supine Exercise Name ankle pump at hip 90 Side right Reps/Minutes 20 figure 4 stretch Reps/Minutes 15 sec hold x 5 Comments PT assisted. bridging Resistance yellow band Reps/Minutes 10 x2, 3 sec at the top Comments for HEP supine clamshell hold Side bilateral Reps/Minutes 10s hold x 5 Comments for HEP piriformis stretch Side right Reps/Minutes 15s holdx 5 Comments for HEP Sidelying Exercises clamshell Reps/Minutes 10 x2 Comments for HEP Manual Therapy Treatment Soft Tissue Mobilization R glute Body Location glute max, med and piriformis Mobilization Type Myofascial Release,Sustained Pressure,Trigger Point Release Intensity/Depth Moderate Body Position Supine Joint Mobilizations R hip Direction traction Grade III Body Position Supine PT-OP-T Assessment and Plan Start: 04/02/21 13:36 Freq: Status: Active Protocol: Document 04/07/21 09:40 (Rec: 04/07/21 10:31 [email or web address]) Physical Therapy Assessment Goals pain Impairment pt has 6/10 pain at r hip Short Term Goal (STG) pt will be able to tolerate walking, stair climbing and walking uphill without pain > 4/10 STG Duration 4 weeks Intermediate Goal (LTG) pt will be able to tolerate walking, stair climbing and walking uphill without pain > 2/10 LTG Duration 8 weeks gait Impairment pt shows trendelenburg sign on RLe Short Term Goal (STG) pt will shows improved R hip abduction strength by 1/2 MMT STG Duration 4 weeks Panel Maker Goal (LTG) pt will shows improved R hip abduction strength by 1 MMT to normalize her gait without trendelenburg sign. LTG Duration 8 weeks LEFS Impairment pt scores 46 on LEFS Short Term Goal (STG) Pt will show improved mobility and strength to score> 55 on LEFS STG Duration 4 weeks Panel Maker Goal (LTG) Pt will show improved mobility and strength to score> 60 on LEFS LTG Duration 8 weeks Assessment Summary Assessment first session today with focus on desensitizing her sciatic nerve, glute tension and increasing hip ROM. She batsheva session well and she did need cueing for hip and knee alignment with bridging and stepper. Physical Therapy Plan Frequency and Duration Frequency of Treatment 1-2x/wk Duration of Treatment 8 weeks Plan of Care Start Date 04/03/21 Plan of Care End Date 06/02/21 Therapeutic Interventions Therapeutic Interventions Aquatic Therapy,Balance Training,Gait Training,Home Exercise Program,Joint Mobilizations,Manual Therapy, Neuromuscular Re-education, Patient/Caregiver Education, Self-Care/Home Management,Soft Tissue Mobilization,Taping, Therapeutic Activities, Therapeutic Exercises Modalities Cold Pack/Ice Massage,Electric Stimulation,Hot Packs, Infrared Therapy,Traction- Mechanical,Ultrasound Next Visit Focus/Plan Next Note Type Treatment Note Next Visit Plan hip stretches hip stabilization [facility]
--- NOTE | 2021-04-13 13:49 | PT.OTN ---
Current Diagnoses Pain in right hip (04/13/21) Physical Therapy Treatment Note PT-OP-A Visit Information Start: 04/02/21 13:36 Freq: Status: Active Protocol: Document 04/13/21 12:56 HH (Rec: 04/13/21 13:49 [id number]) Out-Patient Physical Therapy Visit Information Visit Information Visit Type Treatment Note Visit Start Time 13:00 Visit Stop Time 13:44 Total Visit Minutes 44 Visit Number 3/6 Number of HEART SURGEON Visits 0 PT-OP-B Current Condition Start: 04/02/21 13:36 Freq: Status: Active Protocol: Document 04/02/21 13:45 HH (Rec: 04/03/21 10:28 [email or web address]) Current Condition History of Current Condition Onset Date couple months ago Current Complaints R hip pain ,difficulty with WB activities History of Current Condition Simi is a 70 yo female here for her R hip pain since early this years. Pain is dull and achy at the posterior lateral side of the R hip. It is limiting her for walking, stair climbing, walking uphill and sleeping. Her pain gets worse with all WB activities. She recently had hip x-ray with Mild symmetric hip joint osteoarthritis but no concerns as her PA stated. Prior Treatments and Tests pt had back surgery L4-L5 few years ago. Personal Factors Other Personal Factors That May Effect HTN Therapy/Recovery PT-OP-C Subjective Start: 04/02/21 13:36 Freq: Status: Active Protocol: Document 04/13/21 12:56 HH (Rec: 04/13/21 13:49 [email or web address]) OP-PT Subjective Patient Comments Patient Comments I can feel the exercises are helping which i feel stronger and my walking is more level. My pain is down for sure. I can definitely walk more and tolerate more. Patient Reported Progress Improving PT-OP-D Balance Start: 04/02/21 13:36 Freq: Status: Active Protocol: Document 04/02/21 13:45 HH (Rec: 04/03/21 10:28 [email or web address]) Balance Tests Single Limb Standing Single Limb- Right >20, noticeable lateral trunk to R Single Limb- Left >20 PT-OP-F Manual Assessment Start: 04/02/21 13:36 Freq: Status: Active Protocol: Document 04/02/21 13:45 HH (Rec: 04/03/21 10:28 [email or web address]) Manual Assessments Soft Tissue Assessment Soft Tissue Mobility Assessment significant toncity at R TFL, SIJ, proximal glute max tendon and IT band PT-OP-G Mobility & Gait Start: 04/02/21 13:36 Freq: Status: Active Protocol: Document 04/02/21 13:45 HH (Rec: 04/03/21 10:28 [email or web address]) OP Gait Assessment Comments Gait Comments noticeable trendelenburg sign. L hip drop during stance phase of RLE with lateral trunk lean to R. PT-OP-H Neuro Start: 04/02/21 13:36 Freq: Status: Active Protocol: Document 04/02/21 13:45 HH (Rec: 04/03/21 10:28 [email or web address]) Deep Tendon Reflex & Clonus Assessment Deep Tendon Reflex Bilateral Achilles Deep Tendon Reflex 2+ Normal Bilateral Patellar Deep Tendon Reflex 2+ Normal PT-OP-L Special Tests Start: 04/02/21 13:36 Freq: Status: Active Protocol: Document 04/02/21 13:45 HH (Rec: 04/03/21 10:28 [email or web address]) Special Tests Hip Special Tests Straight Leg Raise Test Results -ve Piriformis Test Results -ve FADDIR Test Results +VE R Comments pulling pain at hip KEYANA Test Results -ve Scour Test Test Results +VE R Comments posterioer lateral hip pain Trendelenberg Test Results +VE R PT-OP-M Strength Start: 04/02/21 13:36 Freq: Status: Active Protocol: Document 04/02/21 13:45 HH (Rec: 04/03/21 10:28 [email or web address]) Hip Strength Hip Manual Muscle Testing Right Flexion (L2) 4 Good Extension (S1) 4- Good- Abduction 3 Fair Adduction 4- Good- Left Flexion (L2) 4+ Good+ Extension (S1) 4+ Good+ Abduction 4+ Good+ Adduction 4+ Good+ Knee Strength Knee Manual Muscle Testing Right Flexion (S2) 4+ Good+ Extension (L3) 4+ Good+ Left Flexion (S2) 4+ Good+ Extension (L3) 4+ Good+ Ankle/Foot Strength Ankle and Foot Manual Muscle Testing Right Dorsiflexion (L4) 5 Normal Plantarflexion (S1) 5 Normal Left Dorsiflexion (L4) 5 Normal Plantarflexion (S1) 5 Normal PT-OP-Q Treatments Start: 04/02/21 13:36 Freq: Status: Active Protocol: Document 04/13/21 12:56 (Rec: 04/13/21 13:49 HH [id number]) Gym Equipment Shuttle Recovery SL squat Resistance #37 Shuttle Recovery Platform Stable Therapeutic Exercises Supine Exercises sciatic nerve glide Supine Exercise Name ankle pump at hip 90 Side right Reps/Minutes 20 figure 4 stretch Reps/Minutes 15 sec hold x 5 Comments PT assisted. bridging Resistance red band Reps/Minutes 10 x2, 3 sec at the top Comments for HEP piriformis stretch Side right Reps/Minutes 15s holdx 5 Comments for HEP Sidelying Exercises SL abd Reps/Minutes 8 x2 Comments weakness R>L clamshell Reps/Minutes 10 x2 Comments for HEP Standing Exercises squat Equipment Used red band Reps/Minutes 12 x2 Comments cues on knee alignment. Manual Therapy Treatment Soft Tissue Mobilization R glute Body Location glute max, med and piriformis Mobilization Type Myofascial Release,Sustained Pressure,Trigger Point Release Intensity/Depth Moderate Body Position Supine Joint Mobilizations R hip Direction traction Grade III Body Position Supine PT-OP-T Assessment and Plan Start: 04/02/21 13:36 Freq: Status: Active Protocol: Document 04/13/21 12:56 (Rec: 04/13/21 13:49 [id number]) Physical Therapy Assessment Goals pain Impairment pt has 6/10 pain at r hip Short Term Goal (STG) pt will be able to tolerate walking, stair climbing and walking uphill without pain > 4/10 STG Duration 4 weeks Fdc Goal (LTG) pt will be able to tolerate walking, stair climbing and walking uphill without pain > 2/10 LTG Duration 8 weeks gait Impairment pt shows trendelenburg sign on RLe Short Term Goal (STG) pt will shows improved R hip abduction strength by 1/2 MMT STG Duration 4 weeks Missile Mechanic Goal (LTG) pt will shows improved R hip abduction strength by 1 MMT to normalize her gait without trendelenburg sign. LTG Duration 8 weeks LEFS Impairment pt scores 46 on LEFS Short Term Goal (STG) Pt will show improved mobility and strength to score> 55 on LEFS STG Duration 4 weeks Fdc Goal (LTG) Pt will show improved mobility and strength to score> 60 on LEFS LTG Duration 8 weeks Assessment Summary Assessment pt reports good progress with good hip staiblizers activation and improved trendelenburg sign. Progressed to WB exercises today. Added band squat today and she batsheva well. Physical Therapy Plan Frequency and Duration Frequency of Treatment 1-2x/wk Duration of Treatment 8 weeks Plan of Care Start Date 04/03/21 Plan of Care End Date 06/02/21 Therapeutic Interventions Therapeutic Interventions Aquatic Therapy,Balance Training,Gait Training,Home Exercise Program,Joint Mobilizations,Manual Therapy, Neuromuscular Re-education, Patient/Caregiver Education, Self-Care/Home Management,Soft Tissue Mobilization,Taping, Therapeutic Activities, Therapeutic Exercises Modalities Cold Pack/Ice Massage,Electric Stimulation,Hot Packs, Infrared Therapy,Traction- Mechanical,Ultrasound Next Visit Focus/Plan Next Note Type Treatment Note Next Visit Plan hip stretches hip stabilization [facility]
--- NOTE | 2021-04-21 10:31 | PT.OTN ---
Current Diagnoses Pain in right hip (04/21/21) Physical Therapy Treatment Note PT-OP-A Visit Information Start: 04/02/21 13:36 Freq: Status: Active Protocol: Document 04/21/21 09:40 HH (Rec: 04/21/21 10:30 [id number]) Out-Patient Physical Therapy Visit Information Visit Information Visit Type Treatment Note Visit Start Time 09:46 Visit Stop Time 10:30 Total Visit Minutes 44 Visit Number 4/6 Number of EXECUTIVE DIRECTOR CONTRACT SHOP Visits 0 PT-OP-B Current Condition Start: 04/02/21 13:36 Freq: Status: Active Protocol: Document 04/02/21 13:45 HH (Rec: 04/03/21 10:28 [email or web address]) Current Condition History of Current Condition Onset Date couple months ago Current Complaints R hip pain ,difficulty with WB activities History of Current Condition Simi is a 70 yo female here for her R hip pain since early this years. Pain is dull and achy at the posterior lateral side of the R hip. It is limiting her for walking, stair climbing, walking uphill and sleeping. Her pain gets worse with all WB activities. She recently had hip x-ray with Mild symmetric hip joint osteoarthritis but no concerns as her PA stated. Prior Treatments and Tests pt had back surgery L4-L5 few years ago. Personal Factors Other Personal Factors That May Effect HTN Therapy/Recovery PT-OP-C Subjective Start: 04/02/21 13:36 Freq: Status: Active Protocol: Document 04/21/21 09:40 HH (Rec: 04/21/21 10:30 [id number]) OP-PT Subjective Patient Comments Patient Comments I havent done much exercises lately and for some reason my R hip was hurting a bit since yesterday but i did do some stretches and it did help. Patient Reported Progress Improving PT-OP-D Balance Start: 04/02/21 13:36 Freq: Status: Active Protocol: Document 04/02/21 13:45 HH (Rec: 04/03/21 10:28 [email or web address]) Balance Tests Single Limb Standing Single Limb- Right >20, noticeable lateral trunk to R Single Limb- Left >20 PT-OP-F Manual Assessment Start: 04/02/21 13:36 Freq: Status: Active Protocol: Document 04/02/21 13:45 HH (Rec: 04/03/21 10:28 [email or web address]) Manual Assessments Soft Tissue Assessment Soft Tissue Mobility Assessment significant toncity at R TFL, SIJ, proximal glute max tendon and IT band PT-OP-G Mobility & Gait Start: 04/02/21 13:36 Freq: Status: Active Protocol: Document 04/02/21 13:45 HH (Rec: 04/03/21 10:28 [email or web address]) OP Gait Assessment Comments Gait Comments noticeable trendelenburg sign. L hip drop during stance phase of RLE with lateral trunk lean to R. PT-OP-H Neuro Start: 04/02/21 13:36 Freq: Status: Active Protocol: Document 04/02/21 13:45 HH (Rec: 04/03/21 10:28 [email or web address]) Deep Tendon Reflex & Clonus Assessment Deep Tendon Reflex Bilateral Achilles Deep Tendon Reflex 2+ Normal Bilateral Patellar Deep Tendon Reflex 2+ Normal PT-OP-L Special Tests Start: 04/02/21 13:36 Freq: Status: Active Protocol: Document 04/02/21 13:45 HH (Rec: 04/03/21 10:28 [email or web address]) Special Tests Hip Special Tests Straight Leg Raise Test Results -ve Piriformis Test Results -ve FADDIR Test Results +VE R Comments pulling pain at hip KEYANA Test Results -ve Scour Test Test Results +VE R Comments posterioer lateral hip pain Trendelenberg Test Results +VE R PT-OP-M Strength Start: 04/02/21 13:36 Freq: Status: Active Protocol: Document 04/02/21 13:45 HH (Rec: 04/03/21 10:28 [email or web address]) Hip Strength Hip Manual Muscle Testing Right Flexion (L2) 4 Good Extension (S1) 4- Good- Abduction 3 Fair Adduction 4- Good- Left Flexion (L2) 4+ Good+ Extension (S1) 4+ Good+ Abduction 4+ Good+ Adduction 4+ Good+ Knee Strength Knee Manual Muscle Testing Right Flexion (S2) 4+ Good+ Extension (L3) 4+ Good+ Left Flexion (S2) 4+ Good+ Extension (L3) 4+ Good+ Ankle/Foot Strength Ankle and Foot Manual Muscle Testing Right Dorsiflexion (L4) 5 Normal Plantarflexion (S1) 5 Normal Left Dorsiflexion (L4) 5 Normal Plantarflexion (S1) 5 Normal PT-OP-Q Treatments Start: 04/02/21 13:36 Freq: Status: Active Protocol: Document 04/21/21 09:40 HH (Rec: 04/21/21 10:30 [id number]) Therapeutic Exercises Supine Exercises bridging Resistance red band Reps/Minutes 10 x2, 3 sec at the top Comments for HEP Sidelying Exercises SL abd Reps/Minutes 8 x2 Comments weakness R>L Standing Exercises crab walk Side bilateral Equipment Used red band on knees. Reps/Minutes 20 ft x 4 Comments for HEP step up Reps/Minutes 6 step, 8x1 Comments painful at R hip, discontinue squat Equipment Used red band Reps/Minutes 12 x2 Comments cues on knee alignment. Manual Therapy Treatment Soft Tissue Mobilization R glute Body Location glute max, med and piriformis Mobilization Type Myofascial Release,Sustained Pressure,Trigger Point Release Intensity/Depth Moderate Body Position Supine Comments mod tonicity at R TFL and piriformis. Joint Mobilizations R hip Direction traction Grade III Body Position Supine PT-OP-T Assessment and Plan Start: 04/02/21 13:36 Freq: Status: Active Protocol: Document 04/21/21 09:40 HH (Rec: 04/21/21 10:30 [id number]) Physical Therapy Assessment Goals pain Impairment pt has 6/10 pain at r hip Short Term Goal (STG) pt will be able to tolerate walking, stair climbing and walking uphill without pain > 4/10 STG Duration 4 weeks Timber Framer Helper Goal (LTG) pt will be able to tolerate walking, stair climbing and walking uphill without pain > 2/10 LTG Duration 8 weeks gait Impairment pt shows trendelenburg sign on RLe Short Term Goal (STG) pt will shows improved R hip abduction strength by 1/2 MMT STG Duration 4 weeks Timber Framer Helper Goal (LTG) pt will shows improved R hip abduction strength by 1 MMT to normalize her gait without trendelenburg sign. 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 Spent time educating her managing her activity tolerance. Added [place] walk today and will progress to single leg stability ex in WB position next visit. Possible DC Physical Therapy Plan Frequency and Duration Frequency of Treatment 1-2x/wk Duration of Treatment 8 weeks Plan of Care Start Date 04/03/21 Plan of Care End Date 06/02/21 Therapeutic Interventions Therapeutic Interventions Aquatic Therapy,Balance Training,Gait Training,Home Exercise Program,Joint Mobilizations,Manual Therapy, Neuromuscular Re-education, Patient/Caregiver Education, Self-Care/Home Management,Soft Tissue Mobilization,Taping, Therapeutic Activities, Therapeutic Exercises Modalities Cold Pack/Ice Massage,Electric Stimulation,Hot Packs, Infrared Therapy,Traction- Mechanical,Ultrasound Next Visit Focus/Plan Next Note Type Treatment Note Next Visit Plan hip stretches hip stabilization bridging clamshell
--- NOTE | 2021-04-29 10:31 | PT.OTN ---
Current Diagnoses Pain in right hip (04/29/21) Physical Therapy Treatment Note PT-OP-A Visit Information Start: 04/02/21 13:36 Freq: Status: Active Protocol: Document 04/29/21 09:46 HH (Rec: 04/29/21 10:31 [id number]) Out-Patient Physical Therapy Visit Information Visit Information Visit Type Discharge Summary Visit Start Time 09:46 Visit Stop Time 10:30 Total Visit Minutes 44 Visit Number 5/6 Number of PROPOSAL DEVELOPMENT MANAGER Visits 0 PT-OP-B Current Condition Start: 04/02/21 13:36 Freq: Status: Active Protocol: Document 04/02/21 13:45 HH (Rec: 04/03/21 10:28 [email or web address]) Current Condition History of Current Condition Onset Date couple months ago Current Complaints R hip pain ,difficulty with WB activities History of Current Condition Simi is a 70 yo female here for her R hip pain since early this years. Pain is dull and achy at the posterior lateral side of the R hip. It is limiting her for walking, stair climbing, walking uphill and sleeping. Her pain gets worse with all WB activities. She recently had hip x-ray with Mild symmetric hip joint osteoarthritis but no concerns as her PA stated. Prior Treatments and Tests pt had back surgery L4-L5 few years ago. Personal Factors Other Personal Factors That May Effect HTN Therapy/Recovery PT-OP-C Subjective Start: 04/02/21 13:36 Freq: Status: Active Protocol: Document 04/29/21 09:46 HH (Rec: 04/29/21 10:31 [id number]) OP-PT Subjective Patient Comments Patient Comments Im doing good and able to stairs and walking and sleep witohut problem Patient Reported Progress Improving PT-OP-D Balance Start: 04/02/21 13:36 Freq: Status: Active Protocol: Document 04/02/21 13:45 HH (Rec: 04/03/21 10:28 [email or web address]) Balance Tests Single Limb Standing Single Limb- Right >20, noticeable lateral trunk to R Single Limb- Left >20 PT-OP-F Manual Assessment Start: 04/02/21 13:36 Freq: Status: Active Protocol: Document 04/02/21 13:45 HH (Rec: 04/03/21 10:28 [email or web address]) Manual Assessments Soft Tissue Assessment Soft Tissue Mobility Assessment significant toncity at R TFL, SIJ, proximal glute max tendon and IT band PT-OP-G Mobility & Gait Start: 04/02/21 13:36 Freq: Status: Active Protocol: Document 04/02/21 13:45 HH (Rec: 04/03/21 10:28 HH [email or web address]) OP Gait Assessment Comments Gait Comments noticeable trendelenburg sign. L hip drop during stance phase of RLE with lateral trunk lean to R. PT-OP-H Neuro Start: 04/02/21 13:36 Freq: Status: Active Protocol: Document 04/02/21 13:45 HH (Rec: 04/03/21 10:28 HH [email or web address]) Deep Tendon Reflex & Clonus Assessment Deep Tendon Reflex Bilateral Achilles Deep Tendon Reflex 2+ Normal Bilateral Patellar Deep Tendon Reflex 2+ Normal PT-OP-L Special Tests Start: 04/02/21 13:36 Freq: Status: Active Protocol: Document 04/02/21 13:45 HH (Rec: 04/03/21 10:28 [email or web address]) Special Tests Hip Special Tests Straight Leg Raise Test Results -ve Piriformis Test Results -ve FADDIR Test Results +VE R Comments pulling pain at hip KEYANA Test Results -ve Scour Test Test Results +VE R Comments posterioer lateral hip pain Trendelenberg Test Results +VE R PT-OP-M Strength Start: 04/02/21 13:36 Freq: Status: Active Protocol: Document 04/02/21 13:45 HH (Rec: 04/03/21 10:28 [email or web address]) Hip Strength Hip Manual Muscle Testing Right Flexion (L2) 4 Good Extension (S1) 4- Good- Abduction 3 Fair Adduction 4- Good- Left Flexion (L2) 4+ Good+ Extension (S1) 4+ Good+ Abduction 4+ Good+ Adduction 4+ Good+ Knee Strength Knee Manual Muscle Testing Right Flexion (S2) 4+ Good+ Extension (L3) 4+ Good+ Left Flexion (S2) 4+ Good+ Extension (L3) 4+ Good+ Ankle/Foot Strength Ankle and Foot Manual Muscle Testing Right Dorsiflexion (L4) 5 Normal Plantarflexion (S1) 5 Normal Left Dorsiflexion (L4) 5 Normal Plantarflexion (S1) 5 Normal PT-OP-Q Treatments Start: 04/02/21 13:36 Freq: Status: Active Protocol: Document 04/29/21 09:46 (Rec: 04/29/21 10:31 [id number]) Cardio Equipment Bicycle (Upright) Duration (Minutes) 5 Resistance 5 Therapeutic Exercises Standing Exercises standing hip ext/ abd Side bilateral Reps/Minutes 10 x2 Comments for HEP, hand on hip at the standing leg crab walk Side bilateral Equipment Used red band on knees. Reps/Minutes 20 ft x 4 Comments for HEP step up Reps/Minutes 6 step, 8x1 Comments painful at R hip, discontinue squat Equipment Used red band Reps/Minutes 12 x2 Comments cues on knee alignment. Manual Therapy Treatment Soft Tissue Mobilization R glute Body Location glute max, med and piriformis Mobilization Type Myofascial Release,Sustained Pressure,Trigger Point Release Intensity/Depth Moderate Body Position Supine Comments min tonicity at R TFL and piriformis. Joint Mobilizations R hip Direction traction Grade III Body Position Supine PT-OP-T Assessment and Plan Start: 04/02/21 13:36 Freq: Status: Active Protocol: Document 04/29/21 09:46 (Rec: 04/29/21 10:31 [id number]) Physical Therapy Assessment Goals pain Impairment pt has 6/10 pain at r hip Short Term Goal (STG) pt will be able to tolerate walking, stair climbing and walking uphill without pain > 4/10 STG Duration 4 weeks Software Engineer Advisor Goal (LTG) pt will be able to tolerate walking, stair climbing and walking uphill without pain > 2/10 04/29 goal met, Pain 2/10 for stair climbing and no night pain. LTG Duration 8 weeks gait Impairment pt shows trendelenburg sign on RLe Short Term Goal (STG) pt will shows improved R hip abduction strength by 1/2 MMT STG Duration 4 weeks Alf Goal (LTG) 04/29 goal met pt shows improved R hip abduction strength by 1 MMT to normalize her gait without trendelenburg sign. LTG Duration 8 weeks LEFS Impairment pt scores 46 on LEFS Short Term Goal (STG) Pt will show improved mobility and strength to score> 55 on LEFS STG Duration 4 weeks Software Engineer Advisor Goal (LTG) Pt will show improved mobility and strength to score> 60 on LEFS LTG Duration 8 weeks Assessment Summary Assessment pt met all her goals with minimal hip pain and able to show improved gait stability with min L hip drop. Added standing hip ext/ abd for HEP and recommended continuous strengthening 3times a week. Pt expresses good understanding and agrees to be DC from PT/ Physical Therapy Plan Frequency and Duration Frequency of Treatment 1-2x/wk Duration of Treatment 8 weeks Plan of Care Start Date 04/03/21 Plan of Care End Date 06/02/21 Therapeutic Interventions Therapeutic Interventions Aquatic Therapy,Balance Training,Gait Training,Home Exercise Program,Joint Mobilizations,Manual Therapy, Neuromuscular Re-education, Patient/Caregiver Education, Self-Care/Home Management,Soft Tissue Mobilization,Taping, Therapeutic Activities, Therapeutic Exercises Modalities Cold Pack/Ice Massage,Electric Stimulation,Hot Packs, Infrared Therapy,Traction- Mechanical,Ultrasound Next Visit Focus/Plan Next Note Type Treatment Note Next Visit Plan hip stretches hip stabilization bridging clamshell
== END 2021-08-18 09:54 ==
LOC: PHYS 09:45
PROVIDERS: PCP Physician Assistant; Referring Provider Physician Assistant; Visit Provider Physician Assistant
DX: M25.551 Pain in right hip (principal)
CPT/HCPCS: 97110; 97140; 97161

== ENCOUNTER → 2022-01-30 09:15 | Outpatient (CLI) | payer OTHER, SELFPAY ==
--- NOTE | 2022-01-30 09:16 | DI.MG.S_ITS ---
BILATERAL DIGITAL SCREENING MAMMOGRAM 3D/2D WITH CAD: 01/30/2022 CLINICAL: Routine screening. Family history of breast cancer. Comparison is made to exams dated: 12/04/2020 mammogram - [facility], 06/05/2018 mammogram, 05/24/2017 mammogram, and 05/03/2016 mammogram - [facility]. The tissue of both breasts is heterogeneously dense. This may lower the sensitivity of mammography. Current study was also evaluated with a Computer Aided Detection (CAD) system. No significant masses, calcifications, or other findings are seen in either breast. There has been no significant interval change. IMPRESSION: NEGATIVE There is no mammographic evidence of malignancy. A 1 year screening mammogram is recommended. Based on the Tyrer Cuzick model (a risk assessment model) the patient's lifetime risk is 10.7% and her 10 year risk is 6.8%. According to the ACR, ACS, and NCCN guidelines, an annual breast MRI exam along with mammogram is recommended if the patient's lifetime risk is 20% or greater. This exam was interpreted at Station ID: [id number]. NOTE: For mammograms, a report in lay terms will be sent to the patient. Approximately 15% of breast malignancies will not be visualized mammographically. In the management of a palpable breast mass, a negative mammogram must not discourage biopsy of a clinically suspicious lesion. Electronically Signed By: Sourav quarles/janki:02/01/2022 08:57:26 letter sent: Normal Exam ACR BI-RADS Category 1: Negative [id number]
== END ==
PROVIDERS: PCP Physician Assistant; Referring Provider Physician Assistant; Visit Provider Physician Assistant
DX: Z12.31 Encounter for screening mammogram for malignant neoplasm of breast (principal); Z80.3 Family history of malignant neoplasm of breast
CPT/HCPCS: 77063; 77067

== ENCOUNTER → 2022-06-02 12:11 | Outpatient (CLI) | payer OTHER, SELFPAY ==
--- NOTE | 2022-06-02 | DI.US.S_ITS ---
PROCEDURE: US ABD AORTA ANEURYSM SCREEN INDICATIONS: SCREENING FOR AAA TECHNIQUE: Real time scanning was performed of the aorta and iliac arteries, with image documentation. COMPARISON: None. FINDINGS: Aorta: Proximal aortic diameter measures 2.1 cm. Mid-aorta measures 1.5 cm. Distal aortic diameter is 1.1 cm. Iliac arteries: Right common iliac artery measures 1 cm. Left common iliac artery measures 1.1 cm. IMPRESSION: No abdominal aortic aneurysm. Dictated by: Sourav Perez M.D. on 06/02/2022 at 16:16 Approved by: Sourav Perez M.D. on 06/02/2022 at 16:31
== END ==
PROVIDERS: PCP Physician Assistant; Referring Provider Physician Assistant; Visit Provider Physician Assistant
DX: Z13.6 Encounter for screening for cardiovascular disorders (principal)
CPT/HCPCS: 76706

== ENCOUNTER → 2022-06-30 10:33 | Outpatient (CLI) | payer OTHER, SELFPAY ==
--- NOTE | 2022-06-30 | DI.RAD.S_ITS ---
PROCEDURE: XR KNEE RT 4V INDICATIONS: RIGHT KNEE PAIN TECHNIQUE: 3 views of the knee were acquired. COMPARISON: None. FINDINGS: Bones: Moderate tricompartmental degenerative changes of the right knee most severe in the patellofemoral compartment. No acute fracture or dislocation. Soft tissues: No joint effusion. No suspicious soft tissue calcifications. Chondrocalcinosis of the medial and lateral femorotibial joint spaces. IMPRESSION: Right knee without acute osseous abnormalities. Moderate tricompartmental osteoarthrosis. Chondrocalcinosis of the medial and lateral femorotibial compartments. Differential diagnosis includes but is not limited to hemochromatosis, hyperparathyroidism and CPPD. Dictated by: Milo Villatoro M.D. on 06/30/2022 at 17:15 Approved by: Milo Villatoro M.D. on 06/30/2022 at 17:17
== END ==
PROVIDERS: PCP Physician Assistant; Referring Provider Internal Medicine; Visit Provider Internal Medicine
DX: S89.91XA Unspecified injury of right lower leg, initial encounter (principal); M17.11 Unilateral primary osteoarthritis, right knee; M25.561 Pain in right knee; M11.261 Other chondrocalcinosis, right knee; X58.XXXA Exposure to other specified factors, initial encounter
CPT/HCPCS: 73564

== ENCOUNTER → 2022-07-26 14:25 | Outpatient (CLI) | payer OTHER, SELFPAY ==
--- NOTE | 2022-07-26 | DI.RAD.S_ITS ---
PROCEDURE: XR KNEE RT 3V INDICATIONS: pain in right knee, osteoporosis TECHNIQUE: 3 views of the knee were acquired. COMPARISON: [facility], , XR KNEE RT 4V, 06/30/2022, 10:40. FINDINGS: Bones: No fractures or dislocations. Mild tricompartment joint space loss. No significant spurs. No suspicious bony lesions. Soft tissues: Trace joint effusion. Mild linear tricompartment chondrocalcinosis. IMPRESSION: 1. Mild tricompartment joint space loss and chondrocalcinosis suggesting pseudogout, CPPD, hyperparathyroidism. Correlate clinically. Dictated by: Celia Ortiz M.D. on 07/26/2022 at 17:03 Approved by: Celia Ortiz M.D. on 07/26/2022 at 17:05
== END ==
PROVIDERS: PCP Physician Assistant; Referring Provider Physician Assistant; Visit Provider Physician Assistant
DX: M11.261 Other chondrocalcinosis, right knee (principal); M25.561 Pain in right knee; M81.0 Age-related osteoporosis without current pathological fracture
CPT/HCPCS: 73562

== ENCOUNTER → 2023-04-18 12:19 | Outpatient (CLI) | payer OTHER, SELFPAY ==
--- NOTE | 2023-04-18 | DI.RAD.S_ITS ---
Bone Density Report Name: KATELYN ZAPATA Age: 72 Sex: Female Ethnicity: White Date of : 1950 Indication: osteopenia; Referring Provider: PRERNA VAZQUEZ Study: Bone densitometry was performed. Exam Date: April 18, 2023 Accession number: [id number] Bone Density: Region BMD T-score Z-score Classification AP Spine(L1, L2) 0.886 -0.8 1.2 Normal Femoral Neck (Left) 0.653 -1.8 0.1 Osteopenia Total Hip (Left) 0.810 -1.1 0.5 Osteopenia Femoral Neck (Right) 0.580 -2.4 -0.5 Osteopenia Total Hip (Right) 0.738 -1.7 -0.1 Osteopenia Total Hip Mean 0.774 -1.4 0.2 Osteopenia World Health Organization criteria for BMD impression classify patients as: Normal (T-score at or above -1.0), Osteopenia (T-score between -1.0 and -2.5), or Osteoporosis (T-score at or below -2.5). 10-year Fracture Risk(1): Major Osteoporotic Fracture 14% Hip Fracture 3.5% Reported Risk Factors: [place] (), Neck BMD=0.580, BMI=29.0 (1) FRAX(R) Version 3.08. Fracture probability calculated for an untreated patient. Fracture probability may be lower if the patient has received treatment. Previous Exams: -- Region Exam Age BMD T-score BMD Change BMD Change Date g/cm2 vs Baseline vs Previous -- AP Spine (L1-L2) 04/18/2023 72 0.886 -0.8 0.027 (3.1%)# 0.027 (3.1%)# 03/19/2021 70 0.859 -1.1 Total Hip(Left) 04/18/2023 72 0.810 -1.1 0.048 (6.3%)# 0.048 (6.3%)# 03/19/2021 70 0.762 -1.5 Total Hip(Right) 04/18/2023 72 0.738 -1.7 0.054 (7.9%)# 0.054 (7.9%)# 03/19/2021 70 0.684 -2.1 -- *Denotes significance at 95% confidence level, LSC for AP Spine = 0.022 g/cm2, LSC for Total Hip = 0.027 g/cm2 # Denotes dissimilar scan types or analysis methods Impression: The patient has low bone mass, based on the Right Femoral Neck T-score. The patient has an estimated ten-year risk of hip fracture of 3.5% and an estimated ten-year risk of major fracture of 14%, based on the WHO FRAX algorithm. No significant bone loss was observed. Discussion: BONE DENSITY IS LOW AT ONE OR MORE SKELETAL SITES. THE PATIENT'S BMD AND CLINICAL RISK FACTORS CONTRIBUTE TO THIS PATIENT'S INCREASED RISK OF FRACTURE. This patient's lowest T-score is low at one or more skeletal sites. It meets the World Health Organization's (WHO) criteria for low bone mass (T-score between -1.0 and -2.5). The patient's 10-year risk of hip fracture as calculated by FRAX exceeds the threshold where pharmacological therapy is recommended by the National Osteoporosis Foundation (NOF). However, all treatment decisions require clinical judgment and consideration of individual patient factors, including patient preferences, comorbidities, previous drug use, risk factors not captured in the FRAX model (e.g., frailty, falls, vitamin D deficiency, increased bone turnover, interval significant decline in bone density) and possible under or overestimation of fracture risk by FRAX. The patient should follow a healthful lifestyle (good nutrition with adequate calcium and vitamin D, and appropriate weight-bearing exercise). Follow-Up: Consider a repeat BMD and Vertebral Fracture Assessment (VFA) exam in 2 years or sooner if medically necessary, to reassess this patient's status. Reported by: JENNIFER MENEZES M.D. on 04/18/2023 12:33:00 PM.
--- NOTE | 2023-04-18 | DI.MG.S_ITS ---
BILATERAL DIGITAL SCREENING MAMMOGRAM 3D/2D WITH CAD: 04/18/2023 CLINICAL: Routine screening. Family history of breast cancer. Comparison is made to exams dated: 01/30/2022 mammogram, 12/04/2020 mammogram - [facility], and 06/05/2018 mammogram - [facility]. Both breasts are heterogeneously dense, which may obscure small masses (category c / 51-75% glandular tissue). Current study was also evaluated with a Computer Aided Detection (CAD) system. No significant masses, calcifications, or other findings are seen in either breast. There has been no significant interval change. IMPRESSION: NEGATIVE There is no mammographic evidence of malignancy. A 1 year screening mammogram is recommended. Based on the Tyrer Cuzick model (a risk assessment model) the patient's lifetime risk is 10.1% and her 10 year risk is 7.0%. According to the ACR, ACS, and NCCN guidelines, an annual breast MRI exam along with mammogram is recommended if the patient's lifetime risk is 20% or greater. This exam was interpreted at Station ID: [id number]. NOTE: For mammograms, a report in lay terms will be sent to the patient. Approximately 15% of breast malignancies will not be visualized mammographically. In the management of a palpable breast mass, a negative mammogram must not discourage biopsy of a clinically suspicious lesion. Electronically Signed By: Marcello garcia/janki:04/18/2023 13:57:36 letter sent: Normal Exam ACR BI-RADS Category 1: Negative 3341F
== END ==
PROVIDERS: PCP Physician Assistant; Referring Provider Physician Assistant; Visit Provider Physician Assistant
DX: M81.0 Age-related osteoporosis without current pathological fracture (principal); Z12.31 Encounter for screening mammogram for malignant neoplasm of breast; Z80.3 Family history of malignant neoplasm of breast; M85.89 Other specified disorders of bone density and structure, multiple sites
CPT/HCPCS: 77063; 77067; 77080

== ENCOUNTER → 2024-05-07 15:01 | Outpatient (CLI) | payer OTHER, SELFPAY ==
--- NOTE | 2024-05-07 15:04 | DI.MG.S_ITS ---
BILATERAL DIGITAL SCREENING MAMMOGRAM 3D/2D WITH CAD: 05/07/2024 CLINICAL: Routine screening. Family history of breast cancer. Comparison is made to exams dated: 04/18/2023 mammogram, 01/30/2022 mammogram, and 12/04/2020 mammogram - . The breasts are heterogeneously dense, which may obscure small masses (category c / 51-75% glandular tissue). Current study was also evaluated with a Computer Aided Detection (CAD) system. No significant masses, calcifications, or other findings are seen in either breast. There has been no significant interval change. IMPRESSION: NEGATIVE There is no mammographic evidence of malignancy. A 1 year screening mammogram is recommended. Based on the Tyrer Cuzick model (a risk assessment model) the patient's lifetime risk is 9.0% and her 10 year risk is 7.4%. According to the ACR, ACS, and NCCN guidelines, an annual breast MRI exam along with mammogram is recommended if the patient's lifetime risk is 20% or greater. This exam was interpreted at Station ID: [id number]. NOTE: For mammograms, a report in lay terms will be sent to the patient. Approximately 15% of breast malignancies will not be visualized mammographically. In the management of a palpable breast mass, a negative mammogram must not discourage biopsy of a clinically suspicious lesion. Electronically Signed By: Milo miranda/janki:05/08/2024 06:39:17 letter sent: Normal Exam ACR BI-RADS Category 1: Negative
== END ==
PROVIDERS: PCP Physician Assistant; Referring Provider Physician Assistant; Visit Provider Physician Assistant
DX: Z12.31 Encounter for screening mammogram for malignant neoplasm of breast (principal); Z80.3 Family history of malignant neoplasm of breast; R92.333 Mammographic heterogeneous density, bilateral breasts
CPT/HCPCS: 77063; 77067

== ENCOUNTER → 2025-06-10 14:19 | Outpatient (CLI) | payer OTHER, SELFPAY ==
--- NOTE | 2025-06-10 14:21 | DI.RAD.S_ITS ---
PROCEDURE: XR DEXA AXIAL SKELETON INDICATIONS: Screening COMPARISON: [facility], , XR DEXA AXIAL SKELETON, 04/18/2023, 12:26. FINDINGS: Lumbar Spine: Bone mineral density 0.915 g/cm2, T score -0.6. There is interval 3.3% increase in total lumbar spine bone mineral density. Left Femoral Neck: Bone mineral density 0.671 g/cm2, T score -1.6. There is interval 2.8% increase in left femoral neck bone mineral density. Left Hip: Bone mineral density 0.811 g/cm2, T score -1.1. There is interval 0.1% increase in left total hip bone mineral density. Fracture Risk Calculation (when applicable): 10-year fracture risk of a major osteoporotic fracture 11 percent and of a hip fracture 2.2 percent. (T score greater or equal to -1.0 to: NORMAL) (T score from -1.1 to -2.4: OSTEOPENIA) (T score less than or equal to -2.5: OSTEOPOROSIS) IMPRESSION: Osteopenia as above. Follow-up guidelines as follows: Osteoporosis: Consider a repeat DEXA and Vertebral Fracture Assessment (VFA) exam in 2 years or sooner if medically necessary, to reassess this patient's status. Osteopenia: Consider a repeat DEXA in 2-3 years to reassess this patient's status, or if there is a new clinical indication. Normal: Consider a repeat DEXA in 5 years or sooner, or if there is a new clinical indication. All treatment decisions require clinical judgment and consideration of individual patient factors, including patient preferences, comorbidities, previous drug use, risk factors not captured in the FRAX model (e.g., frailty, falls, vitamin D deficiency, increased bone turnover, interval significant decline in bone density ) and possible under- or over-estimation of fracture risk by FRAX. In addition, the NOF Guide recommends that FDA-approved medical therapies be considered in postmenopausal women and men age >= 50 years with a: * Hip or vertebral (clinical or morphometric) fracture * T-score of <=-2.5 at the spine or hip * Ten-year fracture probability by FRAX of >= 3% for hip fracture or >=20% for major osteoporotic fracture. Dictated by: Jcarlos Russell M.D. on 06/10/2025 at 20:08 Approved by: Jcarlos Russell M.D. on 06/10/2025 at 20:09
--- NOTE | 2025-06-10 14:21 | DI.MG.S_ITS ---
MM screening mammo BI: 06/10/2025. BI-RADS: 1 CLINICAL: 75-year old female for bilateral screening mammogram. Tyrer-Cuzick lifetime risk of 10.2%. Current reported family history of breast cancer: sister. PRIOR EXAMS 05/07/2024, 04/18/2023, 01/30/2022, 12/04/2020. MAMMOGRAPHY TECHNIQUE: 2D and 3D (tomosynthesis) digital mammographic views obtained, with additional images as needed for full coverage. Current study was also evaluated with a Computer Aided Detection (CAD) system. DENSITY C. The breasts are heterogeneously dense, which may obscure small masses. MAMMOGRAPHY FINDINGS Bilateral: No suspicious mass, asymmetry, microcalcification, or other abnormality seen. IMPRESSION: * No evidence of malignancy. RECOMMENDATIONS Bilateral * Annual screening mammography. OVERALL ASSESSMENT CATEGORY BI-RADS-1: Negative. The [employer] recommends annual screening mammography beginning at age 40 for women with average risk of breast cancer. ELECTRONICALLY SIGNED: Allison Sage M.D. on 06/11/2025 at 01:24:47 PM PT Interpreting Station ID: [id number]
== END ==
LOC: MAMMO 14:21
PROVIDERS: PCP Physician Assistant; Referring Provider Family Medicine; Visit Provider Family Medicine
DX: Z12.31 Encounter for screening mammogram for malignant neoplasm of breast (principal); M81.0 Age-related osteoporosis without current pathological fracture; M85.859 Other specified disorders of bone density and structure, unspecified thigh
CPT/HCPCS: 77063; 77067; 77080